=== PATIENT | female | born 1975 | race African-American/Black ===

== ENCOUNTER 2016-09-24 06:31 | Emergency (ER) | payer OTHER ==
--- NOTE | ~2016-09-24 | CR170 ---
[facility] A Service of [facility] RADIOLOGY TEXT RESULTS PATIENT: STARR AGUAYO LOCATION: [facility] : 71 UNIT #: [id number] AGE: [address]: Pricila Alicia SEX: F ORDER DR: [id number] [facility]. [place], [place] [address] [id number] E MR#: [id number] Acc #: [id number] NAME: STARR AGUAYO : 1975 SEX: F STUDY DATE/TIME: 09/24/2016 6:15 UNIT: [facility] ROOM: STUDY DESCRIPTION: CR Knee 2 Views Rt Attending Physician: Pricila Alicia Pa-C Ordering Physician: Pricila Alicia Pa-C Primary Care Physician: [facility], [facility]. MEDICAL IMAGING REPORT This report is preliminary unless electronic signature is present EXAM Right knee, 2 views COMPARISON Radiographs of the left knee dated March 12, 2016 INDICATIONS A 41-year-old female with right knee pain and swelling as well as popping with walking today. FINDINGS There is moderate sized osteophyte of the lateral femoral condyle at its margin. There are bulky femoral notch osteophytes as well as the marginal osteophyte at the medial tibial plateau. There is also osteophyte formation at the anterior tibial plateau. There is premature arterial calcification just below the knee. No suprapatellar effusion. No evidence of new fracture. Small osteophyte inferior pole of the patella as well as minimal patellar enthesopathy. Bones are anatomically aligned. No acute fracture or osseous destruction. There is apparent narrowing of the medial compartment of the knee. IMPRESSION 1. No acute fracture, dislocation or suprapatellar effusion. 2. 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 3. Premature arterial calcifications below the knee. [facility] A Service of [facility] RADIOLOGY TEXT RESULTS PATIENT: STARR AGUAYO LOCATION: [facility] : 71 UNIT #: [id number] AGE: [address]: Pricila Alicia SEX: F ORDER DR: Dictated by... Orville Hightower M.D. THIS IS AN ELECTRONICALLY VERIFIED REPORT Orville Hightower M.D. at 09/27/2016 12:44 AM JACOB/jackson TD: 09/24/2016 16:18 JOB #: [id number] MEDICAL IMAGING REPORT Page 1 of 1 COPY
[~2016-09-24 06:31] MED LIST: ALBUTEROL17 GM INH; ATENOLOL PO; CERTAGEN PO; HCTZ PO; NORVASC PO; PREDNISONE PO; PRILOSEC PO
== END 2016-09-24 07:10 | disposition home or self-care (01) ==
LOC: CED 06:31
DX: M13.861 Other specified arthritis, right knee (principal); I10 Essential (primary) hypertension; F17.210 Nicotine dependence, cigarettes, uncomplicated
CPT/HCPCS: 73560; 99283

== ENCOUNTER 2016-10-11 16:36 | Emergency (ER) | payer OTHER ==
--- NOTE | ~2016-10-11 | CR63 ---
[facility] A Service of [facility] RADIOLOGY TEXT RESULTS PATIENT: STARR AUGAYO LOCATION: [facility] : 71 UNIT #: [id number] AGE: [address]: Sheyla Rocha SEX: F ORDER DR: [id number] [facility] [address] [place], [place] [address] [id number] E MR#: [id number] Acc #: [id number] NAME: STARR AGUAYO : 1975 SEX: F STUDY DATE/TIME: 10/11/2016 17:07 UNIT: [facility] ROOM: STUDY DESCRIPTION: CR Chest 2 View Attending Physician: Sheyla Rocha P.A.-C. Referring Physician: [facility] Ordering Physician: Sheyla Rocha P.A.-C. Primary Care Physician: [facility] MEDICAL IMAGING REPORT This report is preliminary unless electronic signature is present EXAM PA and lateral chest 10/11/2016 COMPARISON 08/12/2009 HISTORY Cough, shortness of breath and congestion for 2 days FINDINGS PA and lateral views are obtained. Cardiac size in the patient appears enlarged. Vascular pattern chest appears normal. Lungs are clear. No acute process is seen. CONCLUSION Cardiomegaly. No acute process identified. Dictated by... Gabriel Hammond M.D. THIS IS AN ELECTRONICALLY VERIFIED REPORT Gabriel Hammond M.D. at 10/13/2016 2:19 PM NELLY/julio cesar TD: 10/12/2016 01:06 JOB #: [id number] MEDICAL IMAGING REPORT Page 1 of 1 COPY
[2016-10-11 16:48] LABS: INFLUENZA A NEG (NEG); INFLUENZA B NEG (NEG)
== END 2016-10-11 17:32 | disposition home or self-care (01) ==
LOC: CFTX 16:36
PROVIDERS: Physician Assistant
DX: J20.9 Acute bronchitis, unspecified (principal); I10 Essential (primary) hypertension; F17.210 Nicotine dependence, cigarettes, uncomplicated; Z98.890 Other specified postprocedural states
CPT/HCPCS: 71020; 87651; 87804; 94640; 99283

== ENCOUNTER 2016-12-15 00:25 | Emergency (ER) | payer OTHER ==
--- NOTE | ~2016-12-15 | CR173 ---
[facility] A Service [facility] RADIOLOGY TEXT RESULTS PATIENT: STARR AGUAYO LOCATION: [facility] : 71 UNIT #: [id number] AGE: [address]: Stan House MD SEX: F ORDER DR: [id number] [facility] [place] [facility]. [place], [place] [address] [id number] E MR#: [id number] Acc #: [id number] NAME: STARR AGUAYO : 1975 SEX: F STUDY DATE/TIME: 12/15/2016 0:52 UNIT: [facility] ROOM: STUDY DESCRIPTION: CR Knee 3 Views Rt Attending Physician: Stan House M.D. Ordering Physician: Ed Anatoliy Posada M.D. Primary Care Physician: [facility] MEDICAL IMAGING REPORT This report is preliminary unless electronic signature is present EXAM Right knee INDICATION Right knee pain. The patient heard it pop today when walking. COMPARISON 09/24/2016 FINDINGS AP, lateral and sunrise views of the right knee were obtained. There is mild degenerative change in the medial and lateral joint compartments with osteophyte formation from the femoral condyles. There is no fracture or effusion. The calcifications close to the proximal tibia noted on the prior study are still present and probably have no clinical consequence. IMPRESSION Degenerative change in the patellofemoral joint and in the medial and lateral joint compartments bilaterally. No acute abnormalities are suggested. Dictated by... Joe Bland M.D. THIS IS AN ELECTRONICALLY VERIFIED REPORT Joe Bland M.D. at 12/15/2016 5:56 AM SUMAN/alejo TD: 12/15/2016 04:19 JOB #: [id number] [facility] A Service [facility] RADIOLOGY TEXT RESULTS PATIENT: STARR AGUAYO LOCATION: [facility] : 71 UNIT #: [id number] AGE: [address]: Stan House MD SEX: F ORDER DR: MEDICAL IMAGING REPORT Page 1 of 1 COPY
== END 2016-12-15 02:33 | disposition home or self-care (01) ==
LOC: CED 00:25
DX: S83.91XA Sprain of unspecified site of right knee, initial encounter (principal); I10 Essential (primary) hypertension; F17.200 Nicotine dependence, unspecified, uncomplicated; X50.9XXA Other and unspecified overexertion or strenuous movements or postures, initial encounter; Y92.009 Unspecified place in unspecified non-institutional (private) residence as the place of occurrence of the external cause
CPT/HCPCS: 29505; 73562; 99283

== ENCOUNTER 2017-01-03 14:08 | Emergency (ER) | payer OTHER | END 2017-01-03 15:20 | disposition home or self-care (01) | LOC: CFTX 14:08 → CED 14:08 → CFTX 15:10 | DX: M25.561 Pain in right knee (principal); I10 Essential (primary) hypertension; F17.210 Nicotine dependence, cigarettes, uncomplicated | CPT/HCPCS: 29530; 99283 ==